=== PATIENT | female | born 1985 | race Caucasian/White ===

== ENCOUNTER 2016-05-09 19:20 | Emergency (ER) | payer MEDICAID ==
[~2016-05-09] VITALS: Ht 152.4 cm; Wt 71.5 kg
[2016-05-09 19:42] VITALS: Ht 152.4 cm; Wt 71.5 kg
[2016-05-09 21:30] LABS: ADD UMIC YES; URINE BILIRUBIN (Dip) NEGATIVE (NEGATIVE); URINE BLOOD (Dip) 3+ (NEGATIVE); URINE COLOR LT. YELLOW (YELLOW); URINE GLUCOSE (Dip) NEGATIVE (NEGATIVE); URINE KETONES (Dip) NEGATIVE (NEGATIVE); URINE LEUKOCYTE ESTERASE (Dip) TRACE (NEGATIVE); URINE NITRITE (Dip) NEGATIVE (NEGATIVE); URINE TOTAL PROTEIN (Dip) NEGATIVE (NEGATIVE); URINE UROBILINOGEN (Dip) 0.2 E.U./dL (0.1-1.0)
[2016-05-09 21:44] LABS: BACTERIA,URINE RARE; SQUAMOUS EPITHELIAL CELL,UR RARE
[2016-05-09] MEDS ORDERED: KETOROLAC 60 MG INJ IM STA (21:46)
--- NOTE | 2016-05-09 21:46 | ERD ---
ER Documentation Chief Complaint Date/Time DATE: 05/09/16 TIME: 21:45 Chief Complaint FIONA PELVIC PAIN ASSOCIATED WITH VAG BLEEDING & CLOTS; PT STATES HAS IUD. HPI This is a 31-year-old female presenting department complaining of severe bilateral pelvic pain for 1 day. Patient states that she is currently on her menstrual period and she uses one pad per hour. She complains of heavy blood clots. She states that her last menstrual period was March 30. She states she has an IUD. She denies any nausea, vomiting, diarrhea. She denies taking any medications for this ROS All systems reviewed and are negative except as per history of present illness. Medications Home Meds Active Scripts Naproxen* (Naprosyn*) 500 Mg Tablet, 500 MG PO BID Y for PAIN, #30 TAB Prov:FREDY HEARD PA-C 05/09/16 Allergies Allergies: Coded Allergies: No Known Allergy (Unverified , 05/09/16) PMhx/Soc History of Surgery: Yes (c/s) Anesthesia Reaction: No Hx Neurological Disorder: No Hx Respiratory Disorders: No Hx Cardiac Disorders: No Hx Psychiatric Problems: No Hx Miscellaneous Medical Probl: No Hx Alcohol Use: Yes (social drinker) Hx Substance Use: No Hx Tobacco Use: No Smoking Status: Former smoker Physical Exam Vitals Vital Signs Date Time Temp Pulse Resp B/P Pulse Ox O2 Delivery O2 Flow Rate FiO2 05/09/16 19:42 98.1 78 18 116/73 100 Physical Exam GENERAL: well-developed/well-nourished, in no apparent distress, non-toxic appearing HENT: NC/AT, moist mucous membranes EYES: Conjunctiva normal NECK: Supple, no lymphadenopathy PULM: CTA bilaterally, no rales, rhonchi, or wheezing heard CV: Normal S1S2, RRR, good capillary refill GI: Soft, non-distended, tender to palpation pelvic region Normal bowel sounds, no masses or organomegaly felt on exam No gross peritonitis, no bruits Negative Rovsing, negative Cho, negative McBurney's point, Negative CVAT BACK: No masses EXT: No clubbing, cyanosis, or edema NEURO: Alert and Orientated SKIN: Intact, normal turgor PSYCH: Normal mood and mentation Results 24 hrs Laboratory Tests Test 05/09/16 21:05 Urine Bacteria RARE Urine Bilirubin NEGATIVE Urine Clarity SL HAZY Urine Color LT. YELLOW Urine Glucose NEGATIVE% Urine Hemoglobin 3+ Urine Ketones NEGATIVE Urine Leukocyte Esterase TRACE Urine Microscopic RBC 5-10/HPF Urine Microscopic WBC 0-2/HPF Urine Nitrite NEGATIVE Urine Specific [place] 1.010 Urine Squamous Epithelial Cells RARE Urine Total Protein NEGATIVE Urine Urobilinogen 0.2 E.U./dL Urine pH 6.0 Current Medications Medications (Trade) Dose Ordered Sig/Alma Route PRN Reason Start Time Stop Time Status Last Admin Dose Admin Ketorolac Tromethamine (Toradol) 60 mg ONCE STAT IM 05/09/16 21:46 05/09/16 21:47 DC 05/09/16 21:57 Procedures/MDM This is a 31-year-old female presenting department complaining of severe bilateral pelvic pain for 1 day. Patient states that she is currently on her menstrual period and she uses one pad per hour. She complains of heavy blood clots. She states that her last menstrual period was March 30. Pelvic pain is likely due to menses. I have a low suspicion for ruptured ovarian cyst or ovarian cyst. Low suspicion for UTI, urinalysis was negative.Pelvic ultrasound was done and radiologist: 1. 3.8 cm right ovarian cysts. 2. IUD within the lower endometrial segment/endocervical canal Patient was given toradol IM in the ED with some relief. I discussed the patient to follow-up with her DERMATOLOGY PHYSICIAN. Discussed return the ER for any worsening signs or symptoms. She understands and agrees with this plan Departure Diagnosis: Primary Impression: Pelvic pain Additional Impression: Ovarian cyst Laterality: right Qualified Code: N83.201 - Cyst of right ovary Condition: Stable FREDY HEARD PA-C May 09, 2016 21:46
--- NOTE | 2016-05-09 23:25 | RADRPT ---
PROCEDURE: US Pelvis. CLINICAL INDICATION: Pelvic pain and vaginal bleeding. TECHNIQUE: Multiple sonographic images of the pelvis were obtained utilizing a transabdominal and endovaginal technique. The images were reviewed on a PACS workstation. COMPARISON: None. FINDINGS: The uterus is visualized and measures 8 x 3.5 x 4 cm in size. The endometrial echo complex is normal and measures 9 mm thickness.. There is no evidence for free fluid. The right ovary has a normal ech otexture and measures 4.4 x 3.3 x 3.5 cm in size . 3.8 cm right ovarian cyst. The left ovary has a normal echotexture and measures 2.9 x 0.3 x 1.3 cm in size. Normal ovarian blood flow bilaterally an IUD is seen in place within the lower endometrial segment/endocervical canal. No adnexal masses are noted. No free fluid in the cul-de-sac. IMPRESSION: 1. 3.8 cm right ovarian cysts. 2. IUD within the lower endometrial segment/endocervical canal RPTAT:AAJJ Physician Renetta Date Time Electronically viewed and signed by Physician Renetta on 05/09/2016 23:25 YESICA/
[2016-05-09] MEDS ORDERED: NAPR-260 PO (23:30)
[2016-05-10 00:02] VITALS: BP 117/74; PULSE 72; RESP 16; TEMP 98.3
== END 2016-05-10 00:02 | disposition home or self-care (01) ==
LOC: FTE 19:20
DX: R10.2 Pelvic and perineal pain (principal); N83.201 Unspecified ovarian cyst, right side; Z87.891 Personal history of nicotine dependence
CPT/HCPCS: 76830; 76856; 81001; 96372; J1885; Z7502; 81003

== ENCOUNTER 2017-03-23 17:02 | Emergency (ER) | payer MEDICAID ==
[~2017-03-23] VITALS: Ht 162.6 cm; Wt 67.6 kg
[~2017-03-23 17:02] MED LIST: NAPR-260 PO
[2017-03-23 17:10] VITALS: Ht 162.6 cm; Wt 67.6 kg
[2017-03-23] MEDS ORDERED: SOD CHLORIDE 0.9% 1,000 ML IV STA (18:10)
[2017-03-23] MEDS ORDERED: ONDANSETRON 4 MG INJ IV STA (18:10)
[2017-03-23] MEDS ORDERED: KETOROLAC 30 MG INJ IV STA (18:10)
[2017-03-23 18:56] LABS: BASOPHIL # 0.1 10^3/ul (0.0-0.1); BASOPHILS % 0.8 % (0.0-2.0); EOSINOPHILS # 0.2 10^3/ul (0.0-0.5); EOSINOPHILS % 1.2 % (0.0-7.0); HEMATOCRIT 40.1 % (37.0-47.0); LYMPHOCYTES # 3.2 10^3/ul (0.8-2.9); MEAN CORPUSCULAR HEMOGLOBIN 28.9 pg (29.0-33.0); MEAN CORPUSCULAR HGB CONC 34.9 g/dl (32.0-37.0); MEAN CORPUSCULAR VOLUME 82.7 fl (82.0-101.0); MEAN PLATELET VOLUME 10.1 fl (7.4-10.4); MONOCYTE # 0.7 10^3/ul (0.3-0.9); MONOCYTES % 5.2 % (0.0-11.0); NEUTROPHIL # 8.2 10^3/ul (1.6-7.5); NEUTROPHILS % 66.4 % (39.0-77.0); PLATELET COUNT 392 10^3/UL (140-415); RED BLOOD COUNT 4.85 10^6/ul (4.20-5.40); RED CELL DISTRIBUTION WIDTH 12.6 % (11.5-14.5); WHITE BLOOD COUNT 12.4 10^3/ul (4.8-10.8)
[2017-03-23 19:03] LABS: ADD UMIC YES; UR ASCORBIC ACID NEGATIVE (NEGATIVE); UR BILIRUBIN (Dip) NEGATIVE (NEGATIVE); UR BLOOD (Dip) 2+ mg/dL (NEGATIVE); UR CLARITY SLIGHTLY CLOUDY (CLEAR); UR COLOR YELLOW (YELLOW); UR GLUCOSE (Dip) NEGATIVE (NEGATIVE); UR KETONES (Dip) NEGATIVE (NEGATIVE); UR LEUKOCYTE ESTERASE (Dip) 2+ Leu/ul (NEGATIVE); UR NITRITE (Dip) NEGATIVE (NEGATIVE); UR RBC 1 /HPF (0-5); UR SPECIFIC GRAVITY (Dip) 1.015 (1.003-1.030); UR SQUAMOUS EPITHELIAL CELL FEW /HPF (FEW); UR TOTAL PROTEIN (Dip) NEGATIVE (NEGATIVE); UR UROBILINOGEN (Dip) NEGATIVE (NEGATIVE)
[2017-03-23 19:17] LABS: ALBUMIN 4.4 g/dl (3.3-4.9); ALBUMIN/GLOBULIN RATIO 1.33; BILIRUBIN,INDIRECT 0.3 mg/dl (0-1.1); BILIRUBIN,TOTAL 0.3 mg/dl (0.2-1.3); CREATININE 0.59 mg/dl (0.44-1.00); POTASSIUM 4.1 mmol/L (3.5-5.1); TOTAL PROTEIN 7.7 g/dl (6.1-8.1)
--- NOTE | 2017-03-23 19:57 | RADRPT ---
PROCEDURE: ULTRASOUND EVALUATION OF THE FEMALE PELVIS: CLINICAL INDICATION: 32 years of age, female. Pelvic pain. TECHNIQUE: Real-time sonographic images of the pelvis were obtained transabdominally and transvagina lly utilizing miranda scale, color, and Doppler imaging. COMPARISON: None available. FINDINGS: LMP: Not provided Uterus: Appearance: Normal. Position: Anteverted Size: 7.3 x 4.4 x 4.9 cm. (Volume 82 mL) Endometrial stripe: 1 cm Right ovary and adnexa: Size: 2.2 x 1.5 x 1.3 cm. (Volume 2.3 mL) Appearance: Normal morphology. No masses. Arterial flow present. Left ovary and adnexa: Size: 2.3 x 1.8 x 2 cm. (Volume 4.4 mL) Appearance: Normal morphology. Small follicle is present. No masses. Arterial flow present. Free fluid: Trace free pelvic fluid IMPRESSION: Normal ultrasound evaluation of the female pelvis. RPTAT: HCTS Physician Isabella Date Time Electronically viewed and signed by Physician Isabella on 03/23/2017 19:57 CS/
--- NOTE | 2017-03-23 20:47 | RADRPT ---
PROCEDURE: CT abdomen and pelvis without contrast. CLINICAL INDICATION: Lower abdominal pain with nausea for 3 days. TECHNIQUE: CT of the abdomen and pelvis was performed without contrast. Coronal and sagittal reform atted images were obtained from the axial source images. Images were reviewed on a high-resolution [employer] workstation. The total exam CTDI equals 12.9 mGy and the total exam DLP equals 728.12 mGy-cm. DI COM images are available. One or more of the following dose reduction techniques were used: - Automated exposure control. - Adjustment of the mA and/or kV according to patient size. - Use of iterative reconstruction technique. COMPARISON: Pelvic ultrasound dated 03/23/2017. FINDINGS: Visualized lower thorax: The visualized lung bases are clear. The visualized heart is unremarkable. There is a small to moderate hiatal hernia. Hepatobiliary system and spleen: The liver is grossly unremarkable. There is no intra or extrahepat ic biliary ductal dilatation. The gallbladder is grossly unremarkable. The spleen is grossly unremar kable. The pancreas is grossly unremarkable. Adrenal glands and genitourinary system: The adrenal glands are grossly unremarkable. There is no n ephrolithiasis or hydronephrosis. The urinary bladder is grossly unremarkable. The uterus and adnex a are grossly unremarkable. Gastrointestinal system: There is no bowel wall thickening or evidence of obstruction. The appendix is in the right lower quadrant and is unremarkable. Peritoneum, vascular, and lymphatics: There is no free intraperitoneal air or free fluid. There is no mesenteric or retroperitoneal adenopathy. The aorta is nonaneurysmal. There is nonspecific focal inflammatory change in the left pelvic mesenteric fat adjacent to the adnexa with no focal drainable collection. Musculoskeletal system and soft tissues: There are no concerning osseous lesions. The soft tissues are unremarkable. IMPRESSION: 1. Nonspecific focal inflammatory change within the left pelvic mesenteric fat adjacent to the adne xa with no focal drainable collection or definitive source of the finding. Follow-up as clinically warranted. 2. Small to moderate hiatal hernia. RPTAT: HLBP .Don Guardado MD, MD Date Time Electronically viewed and signed by .Don Guardado MD, MD on 03/23/2017 20:46 .P/
[2017-03-23] MEDS ORDERED: CIPR500T4 PO (21:03)
[2017-03-23] MEDS ORDERED: ACET325T33 PO (21:03)
[2017-03-23 21:18] VITALS: BP 122/70; PULSE 78; RESP 16
--- NOTE | 2017-03-23 21:29 | ERD ---
ER Documentation Chief Complaint Chief Complaint Pt with AP , nausea and dizzyness X 4 days. HPI 82-year-old female complaining of abdominal pain. Patient describes her pain in the pelvic region and states is constant. Pain has been consistent for the last 4 days. Denies hematuria. Denies dysuria. Denies back pain. LNMP was March 19. Has occasional nausea. Normal bowel movements, last bowel movement was 4 hours ago. Denies medical problems. NKDA. Surgical history: Denies. Social history: Denies ROS All systems reviewed and are negative except as per history of present illness. Medications Home Meds Active Scripts Acetaminophen* (Tylenol*) 325 Mg Tablet, 2 TAB PO Q8 Y for PAIN AND OR ELEVATED TEMP, #20 TAB Prov:LOPEZ DUFF PA-C 03/23/17 Ciprofloxacin Hcl* (Ciprofloxacin Hcl*) 500 Mg Tablet, 500 MG PO BID for 7 Days , TAB Prov:LOPEZ DUFF PA-C 03/23/17 Naproxen* (Naprosyn*) 500 Mg Tablet, 500 MG PO BID Y for PAIN, #30 TAB Prov:FREDY HEARD PA-C 05/09/16 Allergies Allergies: Coded Allergies: No Known Allergy (Unverified , 05/09/16) PMhx/Soc History of Surgery: Yes (c/s) Anesthesia Reaction: No Hx Neurological Disorder: No Hx Respiratory Disorders: No Hx Cardiac Disorders: No Hx Psychiatric Problems: No Hx Miscellaneous Medical Probl: No Hx Alcohol Use: Yes (social drinker) Hx Substance Use: No Hx Tobacco Use: No Smoking Status: Never smoker Physical Exam Vitals Vital Signs Date Time Temp Pulse Resp B/P Pulse Ox O2 Delivery O2 Flow Rate FiO2 03/23/17 21:18 78 16 122/70 98 Room Air 03/23/17 17:10 98.7 74 18 112/76 100 Physical Exam GENERAL: The patient is well-appearing, well-nourished, in no acute distress HEENT: Atraumatic. Conjunctivae are pink. Pupils equal, round, and reactive to light. There is no scleral icterus. Tympanic membranes clear bilaterally. Oropharynx clear. No nystagmus or photophobia. NECK: C-spine is soft and supple. There is no meningismus. There is no cervical lymphadenopathy. CHEST: Clear to auscultation bilaterally. There are no rales, wheezes or rhonchi. HEART: Regular rate and rhythm. No murmurs, clicks, rubs or gallops. No S3 or S4. ABDOMEN: Normoactive bowel sounds. No rebound tenderness. Mild tenderness outpatient the lower pelvic region. No organomegaly. No rigidity. BACK: No midline or flank tenderness. Result Diagram: 03/23/17183903/23/171839 Results 24 hrs Laboratory Tests Test 03/23/17 18:40 White Blood Count 12.410^3/ul Red Blood Count 4.8510^6/ul Hemoglobin 14.0g/dl Hematocrit 40.1% Mean Corpuscular Volume 82.7fl Mean Corpuscular Hemoglobin 28.9pg Mean Corpuscular Hemoglobin Concent 34.9g/dl Red Cell Distribution Width 12.6% Platelet Count 16461^3/UL Mean Platelet Volume 10.1fl Neutrophils % 66.4% Lymphocytes % 26.0% Monocytes % 5.2% Eosinophils % 1.2% Basophils % 0.8% Nucleated Red Blood Cells % 0.0/100WBC Neutrophils # 8.210^3/ul Lymphocytes # 3.210^3/ul Monocytes # 0.710^3/ul Eosinophils # 0.210^3/ul Basophils # 0.110^3/ul Nucleated Red Blood Cells # 0.010^3/ul Urine Color YELLOW Urine Clarity SLIGHTLY CLOUDY Urine pH 6.0 Urine Specific [place] 1.015 Urine Ketones NEGATIVEmg/dL Urine Nitrite NEGATIVEmg/dL Urine Bilirubin NEGATIVEmg/dL Urine Urobilinogen NEGATIVEmg/dL Urine Leukocyte Esterase 2+Christen/ul Urine Microscopic RBC 1/HPF Urine Microscopic WBC 22/HPF Urine Squamous Epithelial Cells FEW/HPF Urine Hemoglobin 2+mg/dL Urine Glucose NEGATIVEmg/dL Urine Total Protein NEGATIVEmg/dl Sodium Level 141mmol/L Potassium Level 4.1mmol/L Chloride Level 106mmol/L Carbon Dioxide Level 24mmol/L Anion Gap 15 Blood Urea Nitrogen 7mg/dl Creatinine 0.59mg/dl Glucose Level 90mg/dl Calcium Level 9.0mg/dl Total Bilirubin 0.3mg/dl Direct Bilirubin 0.00mg/dl Indirect Bilirubin 0.3mg/dl Aspartate Amino Transf (AST/SGOT) 33IU/L Alanine Aminotransferase (ALT/SGPT) 49IU/L Alkaline Phosphatase 127IU/L Total Protein 7.7g/dl Albumin 4.4g/dl Globulin 3.30g/dl Albumin/Globulin Ratio 1.33 Lipase 64U/L Serum HCG, Qualitative NEGATIVE Current Medications Medications (Trade) Dose Ordered Sig/Alma Route PRN Reason Start Time Stop Time Status Last Admin Dose Admin Sodium Chloride (NS) 1,000 ml @ 1,000 mls/hr Q1H STAT IV 03/23/17 18:10 03/23/17 19:09 DC 03/23/17 18:37 Ondansetron HCl (Zofran Inj) 4 mg ONCE STAT IV 03/23/17 18:10 03/23/17 18:11 DC 03/23/17 18:37 Ketorolac Tromethamine (Toradol) 30 mg ONCE STAT IV 03/23/17 18:10 03/23/17 18:11 DC 03/23/17 18:39 Procedures/MDM DIAGNOSTIC IMAGING REPORT Patient: TORIBIO ESCOBAR : 1985 Age: 32 Sex: F [id number] DOS: 03/23/17 1810 Ordering MD: BECCA DUFF PA-C Location: [facility] Room/Bed: PROCEDURE: CT abdomen and pelvis without contrast. CLINICAL INDICATION: Lower abdominal pain with nausea for 3 days. TECHNIQUE: CT of the abdomen and pelvis was performed without contrast. Coronal and sagittal reformatted images were obtained from the axial source images. Images were reviewed on a high-resolution PACS workstation. The total exam CTDI equals 12.9 mGy and the total exam DLP equals 728.12 mGy-cm. DICOM images are available. One or more of the following dose reduction techniques were used: - Automated exposure control. - Adjustment of the mA and/or kV according to patient size. - Use of iterative reconstruction technique. COMPARISON: Pelvic ultrasound dated 03/23/2017. FINDINGS: Visualized lower thorax: The visualized lung bases are clear. The visualized heart is unremarkable. There is a small to moderate hiatal hernia. Hepatobiliary system and spleen: The liver is grossly unremarkable. There is no intra or extrahepatic biliary ductal dilatation. The gallbladder is grossly unremarkable. The spleen is grossly unremarkable. The pancreas is grossly unremarkable. Adrenal glands and genitourinary system: The adrenal glands are grossly unremarkable. There is no nephrolithiasis or hydronephrosis. The urinary bladder is grossly unremarkable. The uterus and adnexa are grossly unremarkable. Gastrointestinal system: There is no bowel wall thickening or evidence of obstruction. The appendix is in the right lower quadrant and is unremarkable. Peritoneum, vascular, and lymphatics: There is no free intraperitoneal air or free fluid. There is no mesenteric or retroperitoneal adenopathy. The aorta is nonaneurysmal. There is nonspecific focal inflammatory change in the left pelvic mesenteric fat adjacent to the adnexa with no focal drainable collection. Musculoskeletal system and soft tissues: There are no concerning osseous lesions. The soft tissues are unremarkable. IMPRESSION: 1. Nonspecific focal inflammatory change within the left pelvic mesenteric fat adjacent to the adnexa with no focal drainable collection or definitive source of the finding. Follow-up as clinically warranted. 2. Small to moderate hiatal hernia. DIAGNOSTIC IMAGING REPORT Patient: TORIBIO ESCOBAR : 1985 Age: 32 Sex: F MR #: [id number] DOS: 03/23/17 1810 Ordering MD: BECCA DUFF PA-C Location: [facility] Room/Bed: PROCEDURE: ULTRASOUND EVALUATION OF THE FEMALE PELVIS: CLINICAL INDICATION: 32 years of age, female. Pelvic pain. TECHNIQUE: Real-time sonographic images of the pelvis were obtained transabdominally and transvaginally utilizing miranda scale, color, and Doppler imaging. COMPARISON: None available. FINDINGS: LMP: Not provided Uterus: Appearance: Normal. Position: Anteverted Size: 7.3 x 4.4 x 4.9 cm. (Volume 82 mL) Endometrial stripe: 1 cm Right ovary and adnexa: Size: 2.2 x 1.5 x 1.3 cm. (Volume 2.3 mL) Appearance: Normal morphology. No masses. Arterial flow present. Left ovary and adnexa: Size: 2.3 x 1.8 x 2 cm. (Volume 4.4 mL) Appearance: Normal morphology. Small follicle is present. No masses. Arterial flow present. Free fluid: Trace free pelvic fluid IMPRESSION: Normal ultrasound evaluation of the female pelvis. ER Course: 1L NS with Toradol. MDM: 32 yr old female complaining of pelvic pain. I have low suspicion for appendicitis, I have low suspicion for pelvic emergency. I have low suspicion for pyelo. I have low suspicion for septic stone or nephrolthiasis. Patient's urine shows signs of infection. Patient is discharged with strict ER precautions. Patient is told symptoms change or worsen to return the ER immediately. All questions answered at discharge Departure Diagnosis: Primary Impression: UTI (urinary tract infection) Condition: Stable Patient Instructions: Understanding Urinary Tract Infections (UTIs) Referrals: [facility] YOU HAVE RECEIVED A MEDICAL SCREENING EXAM AND THE RESULTS INDICATE THAT YOU DO NOT HAVE A CONDITION THAT REQUIRES URGENT TREATMENT IN THE EMERGENCY DEPARTMENT. FURTHER EVALUATION AND TREATMENT OF YOUR CONDITION CAN WAIT UNTIL YOU ARE SEEN IN YOUR DOCTORS OFFICE WITHIN THE NEXT 1-2 DAYS. IT IS YOUR RESPONSIBILITY TO MAKE AN APPOINTMENT FOR FOLOW-UP CARE. IF YOU HAVE A PRIMARY DOCTOR --you should call your primary doctor and schedule an appointment IF YOU DO NOT HAVE A PRIMARY DOCTOR YOU CAN CALL OUR PHYSICIAN REFERRAL HOTLINE AT IF YOU CAN NOT AFFORD TO SEE A PHYSICIAN YOU CAN CHOSE FROM THE FOLLOWING [facility] [address] [facility] [address] [facility] [facility] [address] [facility] [address] [facility] [address] [facility] [facility]. [address] Additional Instructions: FOLLOW UP WITH YOUR PRIMARY CARE PHYSICIAN TOMORROW.Return to this facility if you are not improving as expected. LOPEZ DUFF PA-C Mar 23, 2017 21:29
== END 2017-03-23 21:21 | disposition home or self-care (01) ==
LOC: FTE 17:02
DX: N39.0 Urinary tract infection, site not specified (principal)
CPT/HCPCS: 74176; 76830; 76856; 80053; 81001; 83690; 84703; 85025; 96374; 96375; J1885; J2405; J7030; Z7502